=== PATIENT | male | born 1985 | race Caucasian/White ===

== ENCOUNTER 2016-05-13 12:03 | Emergency (ER) | payer MEDICAID | END 2016-05-13 15:26 | disposition home or self-care (01) | LOC: D.ER 12:03 | DX: K04.7 Periapical abscess without sinus (principal); K02.9 Dental caries, unspecified; K08.89 Other specified disorders of teeth and supporting structures; S02.5XXA Fracture of tooth (traumatic), initial encounter for closed fracture; X58.XXXA Exposure to other specified factors, initial encounter; Y93.89 Activity, other specified; Y92.89 Other specified places as the place of occurrence of the external cause ==

== ENCOUNTER 2017-11-26 07:16 | Emergency (ER) | payer SELFPAY ==
[~2017-11-26] VITALS: Ht 177.8 cm; Wt 77.7 kg
[2017-11-26 07:20] VITALS: Ht 177.8 cm; Wt 77.7 kg
[2017-11-26] MEDS ORDERED: XANAX1 MG PO (07:22)
[2017-11-26] MEDS ORDERED: NEXIUM40 MG PO (07:22)
[2017-11-26] MEDS ORDERED: MEDROL DOSE PACK4 MG PO (07:43)
[2017-11-26 07:49] VITALS: BP 130/95
[2017-11-27] MEDS ORDERED: CLEOCIN HCL300 MG PO (12:50)
[2017-11-27] MEDS ORDERED: NORCO 7.5/325 T1 TA1 PO (12:50)
== END 2017-11-26 07:51 | disposition home or self-care (01) ==
LOC: D.ER 07:16
DX: S90.861A Insect bite (nonvenomous), right foot, initial encounter (principal); W57.XXXA Bitten or stung by nonvenomous insect and other nonvenomous arthropods, initial encounter; Y93.9 Activity, unspecified; Y92.89 Other specified places as the place of occurrence of the external cause; F41.9 Anxiety disorder, unspecified; K21.9 Gastro-esophageal reflux disease without esophagitis; F17.200 Nicotine dependence, unspecified, uncomplicated

== ENCOUNTER 2017-11-27 12:02 | Emergency (ER) | payer SELFPAY ==
[~2017-11-27] VITALS: Ht 177.8 cm; Wt 79.8 kg
[~2017-11-27 12:02] MED LIST: MEDROL DOSE PACK4 MG PO; NEXIUM40 MG PO; XANAX1 MG PO
[2017-11-27 12:07] VITALS: Ht 177.8 cm; Wt 79.8 kg
[2017-11-27] MEDS ORDERED: NORCO 7.5/325 T1 TA1 PO (12:50)
[2017-11-27] MEDS ORDERED: CLEOCIN HCL300 MG PO (12:50)
[2017-11-27 13:00] VITALS: BP 130/98
== END 2017-11-27 13:01 | disposition home or self-care (01) ==
LOC: D.ER 12:02
DX: S90.861A Insect bite (nonvenomous), right foot, initial encounter (principal); W57.XXXA Bitten or stung by nonvenomous insect and other nonvenomous arthropods, initial encounter; Y93.89 Activity, other specified; Y92.019 Unspecified place in single-family (private) house as the place of occurrence of the external cause; K21.9 Gastro-esophageal reflux disease without esophagitis

== ENCOUNTER 2018-08-06 10:16 | Emergency (ER) | payer MEDICAID ==
[~2018-08-06] VITALS: Ht 177.8 cm; Wt 75.9 kg
[~2018-08-06 10:16] MED LIST changes: +CLEOCIN HCL300 MG PO; +NORCO 7.5/325 T1 TA1 PO
[2018-08-06 10:17] VITALS: Ht 177.8 cm; Wt 75.9 kg
[2018-08-06] MEDS ORDERED: TYLENOL W/CODEI1 TAB PO (11:08)
[2018-08-06 11:26] VITALS: BP 132/78
== END 2018-08-06 11:27 | disposition home or self-care (01) ==
LOC: D.ER 10:16
DX: T25.222A Burn of second degree of left foot, initial encounter (principal); X10.2XXA Contact with fats and cooking oils, initial encounter; Y93.89 Activity, other specified; Y92.019 Unspecified place in single-family (private) house as the place of occurrence of the external cause

== ENCOUNTER 2018-10-27 09:02 | Emergency (ER) | payer MEDICAID ==
[~2018-10-27] VITALS: Ht 177.8 cm; Wt 74.1 kg
[~2018-10-27 09:02] MED LIST changes: +TYLENOL W/CODEI1 TAB PO
[2018-10-27 09:20] VITALS: BP 161/78; Ht 177.8 cm; Wt 74.1 kg
[2018-10-27] MEDS ORDERED: AUGMENTIN 875-11 TAB PO (09:49)
[2018-10-27] MEDS ORDERED: FLUTICASONE PRO16 GM NASAL (09:49)
== END 2018-10-27 10:00 | disposition home or self-care (01) ==
LOC: D.ER 09:02
DX: J01.90 Acute sinusitis, unspecified (principal)

== ENCOUNTER 2018-10-28 11:19 | Emergency (ER) | payer MEDICAID ==
[~2018-10-28] VITALS: Ht 177.8 cm; Wt 74.1 kg
[~2018-10-28 11:19] MED LIST changes: +AUGMENTIN 875-11 TAB PO; +FLUTICASONE PRO16 GM NASAL
[2018-10-28 11:27] VITALS: BP 134/82; Ht 177.8 cm; Wt 74.1 kg
== END 2018-10-28 12:19 | disposition home or self-care (01) ==
LOC: D.ER 11:19
DX: S93.601A Unspecified sprain of right foot, initial encounter (principal); Y93.6A Activity, physical games generally associated with school recess, summer camp and children; Y92.89 Other specified places as the place of occurrence of the external cause

== ENCOUNTER 2018-12-23 08:23 | Emergency (ER) | payer MEDICAID ==
[~2018-12-23] VITALS: Ht 177.8 cm; Wt 77.3 kg
[2018-12-23 08:28] VITALS: Ht 177.8 cm; Wt 77.3 kg
[2018-12-23] MEDS ORDERED: HYDROCODONE-A1 UDTA2 PO (09:04)
[2018-12-23] MEDS ORDERED: CLEOCIN HCL300 MG PO (09:04)
[2018-12-23 09:09] VITALS: BP 142/78
== END 2018-12-23 09:10 | disposition home or self-care (01) ==
LOC: D.ER 08:23
DX: S02.5XXA Fracture of tooth (traumatic), initial encounter for closed fracture (principal); X58.XXXA Exposure to other specified factors, initial encounter

== ENCOUNTER 2018-12-25 00:06 | Emergency (ER) | payer MEDICAID ==
[~2018-12-25] VITALS: Ht 177.8 cm; Wt 70.5 kg
[~2018-12-25 00:06] MED LIST changes: +HYDROCODONE-A1 UDTA2 PO
[2018-12-25 00:12] VITALS: Ht 177.8 cm; Wt 70.5 kg
[2018-12-25 00:36] LABS: BASOPHILS 0.3 % (0-2); EOSINOPHILS 1.5 % (0-7); HEMATOCRIT 42.4 % (42.0-54.0); HEMOGLOBIN 14.6 g/dL (13.5-17.5); IMMATURE GRANULOCYTES 0.3 % (0-5); LYMPHOCYTES 8.1 % (15-50); MCH 32.4 pg (26.0-34.0); MCHC 34.4 g/dL (31.0-37.0); MCV 94.2 fL (80.0-100.0); MEAN PLATELET VOLUME 9.4 fL (7.4-10.4); MONOCYTES 7.7 % (2-11); NEUTROPHILS 82.1 % (40-80); PLATELET COUNT 165 10x3/uL (130-400); RDW 13.3 % (11.5-14.5); WBC 10.8 10x3/uL (4.8-10.8)
[2018-12-25 01:00] LABS: ALBUMIN 3.4 g/dL (3.4-5.0); ALKALINE PHOSPHATASE 51 U/L (46-116); ALT (SGPT) 55 U/L (10-68); BILIRUBIN - TOTAL 0.59 mg/dL (0.2-1.3); CALC OSMOLALITY 266 mosm/kg (275-300); CALCIUM 8.7 mg/dL (8.5-10.1); CARBON DIOXIDE 27.5 mmol/L (21.0-32.0); CHLORIDE - SERUM 97 mmol/L (98-107); CREATININE - SERUM 0.9 mg/dL (0.6-1.3); GLUCOSE 136 mg/dL (74-106); POTASSIUM - SERUM 4.3 mmol/L (3.5-5.1); PROTEIN - SERUM 7.2 g/dL (6.4-8.2); SODIUM 133 mmol/L (136-145); UREA NITROGEN 10 mg/dL (7-18); eGFR NON AFRICAN AMERICAN > 90 mL/min (90-120)
[2018-12-25 01:38] LABS: UDS - AMPHET NEGATIVE QUAL (NEGATIVE); UDS - BARB NEGATIVE QUAL (NEGATIVE); UDS - BENZO POSITIVE QUAL (NEGATIVE); UDS - COCAINE NEGATIVE QUAL (NEGATIVE); UDS - OPIATE POSITIVE QUAL (NEGATIVE); UDS - PCP NEGATIVE QUAL (NEGATIVE); UDS - THC POSITIVE QUAL (NEGATIVE)
[2018-12-25 01:39] LABS: APPEARANCE CLEAR (CLEAR); BILIRUBIN NEGATIVE (NEGATIVE); COLOR YELLOW (YELLOW); GLUCOSE NEGATIVE (NEGATIVE); KETONE NEGATIVE (NEGATIVE); NITRITE NEGATIVE (NEGATIVE); PROTEIN NEGATIVE (NEGATIVE); SPECIFIC GRAVITY 1.005 (1.005-1.020); UROBILINOGEN NORMAL (NORMAL)
[2018-12-25 01:40] LABS: BACTERIA NONE SEEN /hpf (NEGATIVE); EPITHELIAL CELLS 0-5 /hpf (0-5); RED CELLS - URINE 0-5 /hpf (0-5); WHITE CELLS - URINE 0-5 /hpf (NEGATIVE)
[2018-12-25] MEDS ORDERED: AUGMENTIN 875-11 TAB PO (05:10)
[2018-12-25 05:20] VITALS: BP 130/75
== END 2018-12-25 05:20 | disposition home or self-care (01) ==
LOC: D.ER 00:06
PROVIDERS: Family Medicine
DX: K04.7 Periapical abscess without sinus (principal); L03.211 Cellulitis of face; F17.200 Nicotine dependence, unspecified, uncomplicated

== ENCOUNTER 2018-12-27 10:34 | Emergency (ER) | payer MEDICAID ==
[~2018-12-27] VITALS: Ht 177.8 cm; Wt 77.5 kg
[2018-12-27 10:39] VITALS: BP 149/100; Ht 177.8 cm; Wt 77.5 kg
[2018-12-27 12:09] LABS: BASOPHILS 0.1 % (0-2); EOSINOPHILS 0.5 % (0-7); HEMATOCRIT 40.5 % (42.0-54.0); HEMOGLOBIN 13.6 g/dL (13.5-17.5); IMMATURE GRANULOCYTES 0.2 % (0-5); MCH 32.2 pg (26.0-34.0); MCHC 33.6 g/dL (31.0-37.0); MEAN PLATELET VOLUME 8.9 fL (7.4-10.4); MONOCYTES 7.4 % (2-11); NEUTROPHILS 74.8 % (40-80); PLATELET COUNT 175 10x3/uL (130-400); RBC 4.22 10x6/uL (4.20-6.10); RDW 13.6 % (11.5-14.5); WBC 12.9 10x3/uL (4.8-10.8)
[2018-12-27 12:27] LABS: ALBUMIN 3.2 g/dL (3.4-5.0); ALKALINE PHOSPHATASE 47 U/L (46-116); ALT (SGPT) 39 U/L (10-68); BILIRUBIN - TOTAL 0.36 mg/dL (0.2-1.3); CALC OSMOLALITY 285 mosm/kg (275-300); CALCIUM 8.9 mg/dL (8.5-10.1); CARBON DIOXIDE 32.9 mmol/L (21.0-32.0); CHLORIDE - SERUM 103 mmol/L (98-107); GLUCOSE 98 mg/dL (74-106); POTASSIUM - SERUM 3.3 mmol/L (3.5-5.1); PROTEIN - SERUM 7.3 g/dL (6.4-8.2); SODIUM 143 mmol/L (136-145); UREA NITROGEN 15 mg/dL (7-18); eGFR NON AFRICAN AMERICAN > 90 mL/min (90-120)
== END 2018-12-27 12:15 | disposition left against medical advice (07) ==
LOC: D.ER 10:34
PROVIDERS: Family Medicine
DX: K04.7 Periapical abscess without sinus (principal); K02.9 Dental caries, unspecified; Z76.5 Malingerer [conscious simulation]; F17.210 Nicotine dependence, cigarettes, uncomplicated

== ENCOUNTER 2019-09-16 10:35 | Emergency (ER) | payer MEDICAID ==
[~2019-09-16] VITALS: Ht 177.8 cm; Wt 77.3 kg
[2019-09-16 10:43] VITALS: Ht 177.8 cm; Wt 77.3 kg
[2019-09-16] MEDS ORDERED: VOLTAREN75 MG PO (13:20)
[2019-09-16] MEDS ORDERED: AUGMENTIN 875-11 TAB PO (13:20)
[2019-09-16 13:59] VITALS: BP 142/87
== END 2019-09-16 13:59 | disposition home or self-care (01) ==
LOC: D.ER 10:35
DX: K02.9 Dental caries, unspecified (principal); K04.7 Periapical abscess without sinus; K08.89 Other specified disorders of teeth and supporting structures; Z72.0 Tobacco use; K21.9 Gastro-esophageal reflux disease without esophagitis

== ENCOUNTER 2020-06-17 18:44 | Emergency (ER) | payer BC ==
[~2020-06-17] VITALS: Ht 177.8 cm; Wt 71.8 kg
[~2020-06-17 18:44] MED LIST changes: +BUPROPION HCL200 M1 PO; +DICLOFENAC SODI50 MG PO; +KLONOPIN1 MG PO; +METHOCARBAMOL500 MG PO; +PENICILLIN V P500 MG PO; +PROPRANOLOL HCL10 MG PO; +TORADOL10 MG PO; +VOLTAREN75 MG PO
[2020-06-17 18:59] VITALS: BP 147/84; Ht 177.8 cm; Wt 71.8 kg
[2020-06-17] MEDS ORDERED: ZANAFLEX4 MG PO (20:53)
[2020-06-17] MEDS ORDERED: MEDROL DOSE PACK4 MG PO (20:53)
[2020-06-17] MEDS ORDERED: VOLTAREN75 MG PO (20:53)
== END 2020-06-17 21:30 | disposition home or self-care (01) ==
LOC: D.ER 18:44
DX: M54.16 Radiculopathy, lumbar region (principal); M51.36 Other intervertebral disc degeneration, lumbar region; K21.9 Gastro-esophageal reflux disease without esophagitis